=== PATIENT | male | born 1950 | race Caucasian/White ===

== ENCOUNTER 2020-09-09 08:20 | Inpatient (IN) ==
[2020-09-09] MEDS ORDERED: GLUCAGON 1 MG VIAL IM PRN ×2 (09:43)
[2020-09-09] MEDS ORDERED: DEXTROSE 50% 25 GM/50 ML VIAL IV PRN ×2 (09:43)
[2020-09-09] MEDS ORDERED: MORPHINE 4 MG/1 ML VIAL IV PRN (09:49)
[2020-09-09] MEDS ORDERED: CLORAZEPATE 3.75 MG TABLET PO PRN (09:49)
[2020-09-09] MEDS ORDERED: NITROGLYCERIN SL 0.4 MG TABLET SL PRN (09:49)
[2020-09-09] MEDS ORDERED: ALBUTEROL/IPRATROPIUM 3 ML NEB RESP TX PRN (10:18)
[2020-09-09 10:19] LABS: ABG Base Excess 1.7 MMOL/L (-2.5-2.5); ABG HCO3 25.7 MMOL/L (20-26); ABG Oxygen Saturation 90.1 % (95-100); ABG PCO2 54.9 MM HG (35-48); ABG PH 7.332 (7.35-7.45); ABG PO2 56.8 MM HG (80-95); ABG TCO2 25.2 MMOL/L (23-27)
[2020-09-09 10:26] LABS: Basophils % 0.2 % (0.0-0.8); Eosinophils % 0.2 % (0.00-10.9); Hematocrit 46.4 VOL% (42.0-52.0); Hemoglobin 14.6 GM/DL (14.0-18.0); Immature Granulocytes % 1.2 %; Lymphocytes # 1.2 10*3/uL (1.4-4.0); Lymphocytes % 14.2 % (21.2-54.2); Mean Corpuscular HGB Conc 31.5 GM/DL (32-36); Mean Corpuscular Volume 94.7 FL (87-102); Monocytes % 4.5 % (1.7-12.7); Neutrophils % 79.7 % (38.7-73.9); Platelet Count 108 T/CUMM (130-400); Red Cell Distribution Width 17.1 % (9.3-17.3); White Blood Count 8.4 T/CUMM (4-12)
[2020-09-09 10:48] LABS: Albumin 3.3 G/DL (3.4-5.0); Bilirubin,Total 0.4 MG/DL (0.2-1.0); Calcium 8.5 MG/DL (8.5-10.1); Osmolality,Calculated 287.1 MOS/KG (273-304); Potassium 4.6 MMOL/L (3.5-5.1); Total Protein 6.7 G/DL (6.4-8.2)
[2020-09-09] MEDS: CHLORHEXIDINE 0.12% ORAL RINSE 60 ML BOTTLE SWISH/SPIT SCH ×2 (12:48→21:08)
[2020-09-09] MEDS: INSULIN REGULAR 100 UNIT/ML SUBCUT SCH ×4 (12:49→23:47)
[2020-09-09] MEDS: methylPREDNISolone SOD SUC 125 MG/2 ML VIAL IV SCH ×3 (12:49→23:06)
[2020-09-09] MEDS: ALBUTEROL/IPRATROPIUM 3 ML NEB RESP TX SCH ×4 (13:34→23:50)
[2020-09-09] MEDS: CHLORHEXIDINE 4% SOLN 118 ML BOTTLE TOP SCH ×2 (15:25→21:08)
[2020-09-09] MEDS: ASCORBIC ACID 500 MG TABLET PO SCH (21:04)
[2020-09-10] MEDS: ALBUTEROL/IPRATROPIUM 3 ML NEB RESP TX SCH ×4 (03:52→19:25)
[2020-09-10] MEDS ORDERED: PAPAVERINE 60 MG/2 ML VIAL ONE (04:22)
[2020-09-10] MEDS ORDERED: VANCOMYCIN 1,000 MG VIAL ONE (04:23)
[2020-09-10] MEDS ORDERED: VANCOMYCIN 500 MG VIAL ONE (04:23)
[2020-09-10] MEDS ORDERED: VANCOMYCIN INJ 1,000 MG in SODIUM CHLORIDE 0.9% 250 ML IV ONE (05:00)
[2020-09-10] MEDS: SODIUM CHLORIDE 0.9% 1,000 ML IV SCH ×2 (05:30→12:55)
[2020-09-10] MEDS ORDERED: MIDAZOLAM 10 MG/2 ML VIAL ONE ×4 (05:37→05:38)
[2020-09-10] MEDS ORDERED: LACTATED RINGERS 1,000 ML IV ONE (05:37)
[2020-09-10] MEDS ORDERED: SODIUM CHLORIDE 0.9% 250 ML IV ONE (05:37)
[2020-09-10] MEDS ORDERED: CALCIUM CHLORIDE 1,000 MG/10 ML VIAL IV ONE (05:37)
[2020-09-10] MEDS ORDERED: AMINOCAPROIC ACID 5,000 MG/20 ML VIAL ONE (05:37)
[2020-09-10] MEDS ORDERED: VECURONIUM 10 MG VIAL IV ONE (05:37)
[2020-09-10] MEDS ORDERED: HEPARIN/NACL 0.9% 2 UNITS/ML 1,000 UNIT/500 ML BAG IV ONE (05:37)
[2020-09-10] MEDS ORDERED: SODIUM CHLORIDE 0.9% 1,000 ML IV ONE (05:37)
[2020-09-10] MEDS ORDERED: LIDOCAINE 2% 5 ML VIAL ONE ×2 (05:37→10:29)
[2020-09-10] MEDS ORDERED: ETOMIDATE 40 MG/20 ML VIAL IV ONE (05:37)
[2020-09-10] MEDS ORDERED: SUFentanil 250 MCG/5 ML AMP ONE ×3 (05:38)
[2020-09-10] MEDS ORDERED: PANTOPRAZOLE 40 MG TABLET PO ONE ×2 (06:15→07:30)
[2020-09-10] MEDS ORDERED: DIAZEPAM 5 MG TABLET PO ONE ×2 (06:15→07:30)
[2020-09-10] MEDS: methylPREDNISolone SOD SUC 125 MG/2 ML VIAL IV SCH ×5 (06:25→23:37)
[2020-09-10 07:34] LABS: ABG Base Excess 2.1 MMOL/L (-2.5-2.5); ABG HCO3 27.5 MMOL/L (20-26); ABG Oxygen Saturation 99.3 % (95-100); ABG PCO2 45.9 MM HG (35-48); ABG PH 7.396 (7.35-7.45); ABG PO2 415.1 MM HG (80-95); ABG TCO2 28.9 MMOL/L (23-27); Glucose Heart Surgery 246 MG/DL (74-106); Hemoglobin Heart Surgery 14.1 G/DL (14.0-18.0); Ionized Calcium Arterial 1.15 MMOL/L (1.21-1.46); PCO2 Patient Temp Arterial 45.9 MMHG; PH Patient Temp Arterial 7.396; PO2 Patient Temp Arterial 415.1 MM HG; Patient Temperature 37 CELCIUS; Potassium Heart/CVR 4.1 MMOL/L (3.5-5.1); Sodium Heart/CVR 139 MMOL/L (135-145)
[2020-09-10 07:54] LABS: Bilirubin,Urine Negative (Negative); Blood, Urine Negative (Negative); Glucose,Urine (UA) >=500 mg/dL (Negative); Hyaline Casts,Urine 15 /LPF (0-3); Ketones,Urine Negative (Negative); Mucus,Urine Occasional /LPF (Occasional); Nitrite,Urine Negative (Negative); Protein,Urine Negative; RBC,Urine 1 /HPF (0-4); Urine Appearance CLEAR (Clear); Urine Color Yellow (Yellow); Urine Specific Gravity 1.018 (1.001-1.035); Urine Urobilinogen < 2.0 EU/DL (0.2-1.0); WBC,Urine <1 /HPF (0-6)
[2020-09-10] MEDS ORDERED: PHENYLEPHRINE DRIP 40 MG/250 ML PREMIX IV ONE (08:26)
[2020-09-10 08:33] LABS: Hematocrit Heart Surgery 31.1 PERCENT (42-52); Hemoglobin Heart Surgery 10.1 G/DL (14.0-18.0); PCO2 Patient Temp Venous 40.4 MM HG; PH Patient Temp Venous 7.441; PO2 Patient Temp Venous 46.3 MM HG; Potassium Heart/CVR 4.5 MMOL/L (3.5-5.1); VBG Base Excess 3.3 MEQ/L (0-4); VBG HCO3 27.2 MEQ/L (24-28); VBG PCO2 44.5 MMHG (41-51); VBG PH 7.412; VBG Total CO2 25.8 MMOL/L
[2020-09-10] MEDS ORDERED: POTASSIUM CHLORIDE RIDER 0 ML IV ONE (08:48)
[2020-09-10] MEDS ORDERED: ALBUMIN 5% 25.0 GM/500 ML VIAL IV ONE (08:48)
[2020-09-10] MEDS ORDERED: SEVOFLURANE 1 UNIT/15 MINUTE INH ONE ×7 (08:57→11:40)
[2020-09-10 09:00] LABS: Hematocrit Heart Surgery 32.4 PERCENT (42-52); Hemoglobin Heart Surgery 10.5 G/DL (14.0-18.0); PCO2 Patient Temp Venous 35.7 MM HG; PH Patient Temp Venous 7.484; Potassium Heart/CVR 4.4 MMOL/L (3.5-5.1); VBG Base Excess 3.5 MEQ/L (0-4); VBG HCO3 27.3 MEQ/L (24-28); VBG Oxygen Saturation 88.6 %; VBG PCO2 39.3 MMHG (41-51); VBG PH 7.454; VBG PO2 50.5 MMHG (17-40); VBG Total CO2 24.9 MMOL/L
[2020-09-10 09:30] LABS: Hematocrit Heart Surgery 32.2 PERCENT (42-52); Hemoglobin Heart Surgery 10.4 G/DL (14.0-18.0); PCO2 Patient Temp Venous 31.4 MM HG; PH Patient Temp Venous 7.52; PO2 Patient Temp Venous 35.5 MM HG; Potassium Heart/CVR 3.9 MMOL/L (3.5-5.1); VBG Base Excess 3.2 MEQ/L (0-4); VBG Oxygen Saturation 84.3 %; VBG PCO2 36.3 MMHG (41-51); VBG PH 7.475; VBG PO2 43.7 MMHG (17-40); VBG Total CO2 24.1 MMOL/L
[2020-09-10 10:07] LABS: Hemoglobin Heart Surgery 10.7 G/DL (14.0-18.0); PCO2 Patient Temp Venous 31.3 MM HG; PH Patient Temp Venous 7.518; Potassium Heart/CVR 4.1 MMOL/L (3.5-5.1); VBG Base Excess 2.1 MEQ/L (0-4); VBG HCO3 25.3 MEQ/L (24-28); VBG Oxygen Saturation 78.9 %; VBG PCO2 34.2 MMHG (41-51); VBG PH 7.487; VBG PO2 39.2 MMHG (17-40); VBG Total CO2 26.4 MMOL/L
[2020-09-10] MEDS ORDERED: MAGNESIUM SULFATE 5 GM/10 ML VIAL IV ONE (10:29)
[2020-09-10] MEDS ORDERED: PROTAMINE SULFATE 250 MG/25 ML VIAL IV ONE (10:29)
[2020-09-10] MEDS ORDERED: FUROSEMIDE 20 MG/2 ML VIAL ONE ×2 (10:29→10:30)
[2020-09-10] MEDS ORDERED: DEXTROSE 5% KCL 20 MEQ 40 MEQ/2,000 ML BAG IV ONE (10:29)
[2020-09-10] MEDS ORDERED: ALBUMIN 25% 25 GM/100 ML VIAL IV ONE (10:29)
[2020-09-10] MEDS ORDERED: methylPREDNISolone SOD SUC 1,000 MG/8 ML VIAL ONE (10:29)
[2020-09-10] MEDS ORDERED: MANNITOL 100 GM/500 ML BAG IV ONE (10:29)
[2020-09-10] MEDS ORDERED: HEPARIN 10,000 UNIT/10 ML VIAL ONE (10:29)
[2020-09-10] MEDS ORDERED: SODIUM BICARBONATE 50 MEQ/50 ML VIAL IV ONE (10:30)
[2020-09-10] MEDS ORDERED: PROTAMINE SULFATE 50 MG/5 ML VIAL IV ONE ×2 (10:30→11:34)
[2020-09-10 10:34] LABS: ABG Base Excess -1.7 MMOL/L (-2.5-2.5); ABG HCO3 23.9 MMOL/L (20-26); ABG PH 7.353 (7.35-7.45); ABG PO2 321.1 MM HG (80-95); ABG TCO2 25.3 MMOL/L (23-27); Glucose Heart Surgery 348 MG/DL (74-106); Hemoglobin Heart Surgery 11.6 G/DL (14.0-18.0); Ionized Calcium Arterial 1.19 MMOL/L (1.21-1.46); PH Patient Temp Arterial 7.353; PO2 Patient Temp Arterial 321.1 MM HG; Patient Temperature 37 CELCIUS; Potassium Heart/CVR 3.7 MMOL/L (3.5-5.1); Sodium Heart/CVR 132 MMOL/L (135-145)
[2020-09-10] MEDS: CHLORHEXIDINE 4% SOLN 118 ML BOTTLE TOP SCH (10:47)
[2020-09-10] MEDS: ASCORBIC ACID 500 MG TABLET PO SCH (10:47)
[2020-09-10] MEDS: INSULIN REGULAR 100 UNIT/ML SUBCUT SCH (10:47)
[2020-09-10] MEDS: CHLORHEXIDINE 0.12% ORAL RINSE 60 ML BOTTLE SWISH/SPIT SCH ×2 (10:47→21:44)
[2020-09-10] MEDS ORDERED: MIDAZOLAM 10 MG/2 ML VIAL IV PRN (11:01)
[2020-09-10] MEDS ORDERED: MAGNESIUM SULF RIDER 4 GM in PREMIX 1 EACH IV PRN (11:01)
[2020-09-10] MEDS ORDERED: MAGNESIUM SULF RIDER 2 GM in PREMIX 1 EACH IV PRN (11:01)
[2020-09-10] MEDS ORDERED: CALCIUM CHLORIDE 1,000 MG/10 ML SYRINGE IV PRN (11:01)
[2020-09-10] MEDS ORDERED: ACETAMINOPHEN 650 MG SUPP RECTAL PRN (11:01)
[2020-09-10] MEDS ORDERED: NITROPRUSSIDE 100 MG in DEXTROSE 5% 250 ML IV PRN (11:01)
[2020-09-10] MEDS ORDERED: INSULIN REGULAR 100 UNIT/ML IV PRN (11:01)
[2020-09-10] MEDS ORDERED: LACTATED RINGERS 250 ML IV PRN (11:01)
[2020-09-10] MEDS ORDERED: DEXTROSE 50% 25 GM/50 ML VIAL IV PRN ×2 (11:01)
[2020-09-10] MEDS ORDERED: VECURONIUM 10 MG VIAL IV PRN ×2 (11:01)
[2020-09-10] MEDS ORDERED: MORPHINE 10 MG/1 ML VIAL IV PRN (11:01)
[2020-09-10] MEDS ORDERED: MIDAZOLAM 2 MG/2 ML VIAL IV PRN (11:01)
[2020-09-10] MEDS ORDERED: SODIUM CHLORIDE 0.45% 1,000 ML IV SCH ×2 (11:01→12:00)
[2020-09-10] MEDS ORDERED: INSULIN REGULAR 100 UNIT/ML IV ONE (11:01)
[2020-09-10] MEDS ORDERED: ONDANSETRON 4 MG/2 ML VIAL IV PRN (11:01)
[2020-09-10] MEDS ORDERED: PHENYLEPHRINE DRIP 40 MG/250 ML PREMIX IV PRN (11:01)
[2020-09-10] MEDS ORDERED: CHLORHEXIDINE 4% SOLN 118 ML BOTTLE TOP PRN (11:01)
[2020-09-10] MEDS: LACTATED RINGERS 1,000 ML IV PRN ×3 (11:30→14:05)
[2020-09-10 11:38] LABS: Basophils % 0.1 % (0.0-0.8); Hematocrit 37.2 VOL% (42.0-52.0); Immature Granulocytes % 2.2 %; Lymphocytes # 0.6 10*3/uL (1.4-4.0); Lymphocytes % 4.3 % (21.2-54.2); Mean Corpuscular HGB Conc 32.3 GM/DL (32-36); Mean Platelet Volume 11.4 FL (9.6-12.0); Monocytes % 5.5 % (1.7-12.7); Neutrophils % 87.9 % (38.7-73.9); Red Cell Distribution Width 16.7 % (9.3-17.3); White Blood Count 13.9 T/CUMM (4-12)
[2020-09-10 11:39] LABS: Platelet Count 85 T/CUMM (130-400)
[2020-09-10 11:40] LABS: ABG Base Excess 0.3 MMOL/L (-2.5-2.5); ABG HCO3 24.7 MMOL/L (20-26); ABG Oxygen Saturation 96.5 % (95-100); ABG PCO2 50.3 MM HG (35-48); ABG PH 7.337 (7.35-7.45); ABG PO2 90.5 MM HG (80-95); ABG TCO2 23.9 MMOL/L (23-27); Glucose Heart Surgery 381 MG/DL (74-106); Hematocrit Heart Surgery 37.7 PERCENT (42-52); Hemoglobin Heart Surgery 12.2 G/DL (14.0-18.0); Potassium Heart/CVR 3.8 MMOL/L (3.5-5.1)
[2020-09-10 11:46] LABS: INR 1.1; PT Patient Result 12.8 SECS (9.8-11.9); Partial Thromboplastin Time 24.8 SECS (23.9-33.8)
[2020-09-10] MEDS: POTASSIUM CHLORIDE RIDER 20 MEQ in PREMIX 1 EACH IV PRN (11:48)
[2020-09-10] MEDS ORDERED: PHENYLEPHRINE DRIP 20 MG/250 ML PREMIX IV ONE ×4 (11:48)
[2020-09-10 11:57] LABS: CKMB % 9.5 %
[2020-09-10 12:00] LABS: Band Neutrophils 3 % (0-10); Lymphocytes 3 % (20-55); Segmented Neutrophils 91 % (50-85); Total Cells Counted 100; Troponin I 12.2 NG/ML (0.00-0.045)
[2020-09-10 12:01] LABS: Atypical Lymphocytes Few; Bilirubin,Total 0.7 MG/DL (0.2-1.0); Calcium 8.4 MG/DL (8.5-10.1); Osmolality,Calculated 291.8 MOS/KG (273-304); Platelet Estimate Decreased; Potassium 3.8 MMOL/L (3.5-5.1); Total Protein 5.4 G/DL (6.4-8.2)
[2020-09-10 12:02] LABS: Microcytosis Slight; Target Cells Slight
[2020-09-10] MEDS ORDERED: NITROPRUSSIDE 50 MG/2 ML VIAL ONE (12:10)
[2020-09-10] MEDS ORDERED: INSULIN REGULAR DRIP 100 ML IV SCH (12:30)
[2020-09-10] MEDS: POTASSIUM CHLORIDE RIDER 10 MEQ in PREMIX 1 EACH IV PRN (12:39)
[2020-09-10] MEDS: ALBUMIN 5% 12.5 GM/250 ML VIAL IV PRN ×2 (13:11→13:52)
[2020-09-10 13:23] LABS: ABG Base Excess 2.9 MMOL/L (-2.5-2.5); ABG Oxygen Saturation 98.3 % (95-100); ABG PCO2 38.7 MM HG (35-48); ABG PH 7.451 (7.35-7.45); ABG TCO2 23.7 MMOL/L (23-27); Glucose Heart Surgery 311 MG/DL (74-106); Hematocrit Heart Surgery 37.9 PERCENT (42-52); Hemoglobin Heart Surgery 12.3 G/DL (14.0-18.0); Potassium Heart/CVR 4.2 MMOL/L (3.5-5.1)
[2020-09-10 17:05] LABS: ABG Base Excess 4.4 MMOL/L (-2.5-2.5); ABG HCO3 28.3 MMOL/L (20-26); ABG PH 7.438 (7.35-7.45); ABG TCO2 25.7 MMOL/L (23-27); Glucose Heart Surgery 155 MG/DL (74-106); Hematocrit Heart Surgery 36.1 PERCENT (42-52); Hemoglobin Heart Surgery 11.7 G/DL (14.0-18.0)
[2020-09-10] MEDS ORDERED: ALBUTEROL/IPRATROPIUM 3 ML NEB RESP TX ONE (19:04)
[2020-09-10 19:30] LABS: ABG Base Excess 4.4 MMOL/L (-2.5-2.5); ABG HCO3 28.4 MMOL/L (20-26); ABG Oxygen Saturation 98.9 % (95-100); ABG PCO2 40.8 MM HG (35-48); ABG PH 7.455 (7.35-7.45); ABG TCO2 25.4 MMOL/L (23-27); Glucose Heart Surgery 185 MG/DL (74-106); Hemoglobin Heart Surgery 11.7 G/DL (14.0-18.0); Potassium Heart/CVR 4.1 MMOL/L (3.5-5.1)
[2020-09-10 19:52] LABS: CKMB % 4.7 %
[2020-09-10 19:54] LABS: Troponin I 16.8 NG/ML (0.00-0.045)
[2020-09-10 21:04] LABS: ABG Base Excess 4.9 MMOL/L (-2.5-2.5); ABG HCO3 29.3 MMOL/L (20-26); ABG Oxygen Saturation 96.4 % (95-100); ABG PCO2 42.5 MM HG (35-48); ABG PH 7.456 (7.35-7.45); ABG PO2 88.6 MM HG (80-95); ABG TCO2 30.6 MMOL/L (23-27); Glucose Heart Surgery 132 MG/DL (74-106); Potassium Heart/CVR 3.8 MMOL/L (3.5-5.1)
[2020-09-10 22:15] LABS: ABG Base Excess 4.5 MMOL/L (-2.5-2.5); ABG HCO3 28.4 MMOL/L (20-26); ABG PH 7.387 (7.35-7.45); ABG PO2 84.7 MM HG (80-95); ABG TCO2 27.3 MMOL/L (23-27); Glucose Heart Surgery 145 MG/DL (74-106); Hematocrit Heart Surgery 36.3 PERCENT (42-52); Hemoglobin Heart Surgery 11.8 G/DL (14.0-18.0); Potassium Heart/CVR 3.8 MMOL/L (3.5-5.1)
[2020-09-10] MEDS: VANCOMYCIN INJ 1,000 MG in SODIUM CHLORIDE 0.9% 250 ML IV SCH (22:32)
[2020-09-10 23:19] LABS: ABG Base Excess 4.7 MMOL/L (-2.5-2.5); ABG HCO3 28.6 MMOL/L (20-26); ABG Oxygen Saturation 97.2 % (95-100); ABG PCO2 45.9 MM HG (35-48); ABG PH 7.421 (7.35-7.45); ABG PO2 92.9 MM HG (80-95); ABG TCO2 26.5 MMOL/L (23-27); Glucose Heart Surgery 124 MG/DL (74-106); Hematocrit Heart Surgery 35.9 PERCENT (42-52); Hemoglobin Heart Surgery 11.7 G/DL (14.0-18.0); Potassium Heart/CVR 3.7 MMOL/L (3.5-5.1)
[2020-09-11 00:22] LABS: ABG Base Excess 4.2 MMOL/L (-2.5-2.5); ABG HCO3 29.8 MMOL/L (20-26); ABG PCO2 48.6 MM HG (35-48); ABG PH 7.405 (7.35-7.45); ABG PO2 74.5 MM HG (80-95); ABG TCO2 31.3 MMOL/L (23-27); Glucose Heart Surgery 82 MG/DL (74-106); Hemoglobin Heart Surgery 11.9 G/DL (14.0-18.0); Potassium Heart/CVR 3.9 MMOL/L (3.5-5.1)
[2020-09-11] MEDS ORDERED: FUROSEMIDE 40 MG/4 ML VIAL IV ONE (00:38)
[2020-09-11] MEDS: ALBUTEROL/IPRATROPIUM 3 ML NEB RESP TX SCH ×4 (01:06→20:26)
[2020-09-11 02:15] LABS: ABG Base Excess 3.5 MMOL/L (-2.5-2.5); ABG HCO3 27.5 MMOL/L (20-26); ABG Oxygen Saturation 97.3 % (95-100); ABG PCO2 46.3 MM HG (35-48); ABG PH 7.404 (7.35-7.45); ABG PO2 96.4 MM HG (80-95); ABG TCO2 25.6 MMOL/L (23-27); Glucose Heart Surgery 158 MG/DL (74-106); Potassium Heart/CVR 3.9 MMOL/L (3.5-5.1)
[2020-09-11 03:14] LABS: ABG Base Excess 5.1 MMOL/L (-2.5-2.5); ABG PCO2 48.1 MM HG (35-48); ABG PH 7.413 (7.35-7.45); ABG PO2 91.3 MM HG (80-95); ABG TCO2 27.2 MMOL/L (23-27); Glucose Heart Surgery 157 MG/DL (74-106); Potassium Heart/CVR 3.8 MMOL/L (3.5-5.1)
[2020-09-11] MEDS: POTASSIUM CHLORIDE RIDER 10 MEQ in PREMIX 1 EACH IV PRN (03:17)
[2020-09-11 04:08] LABS: Basophils % 0.1 % (0.0-0.8); Hematocrit 36.5 VOL% (42.0-52.0); Hemoglobin 11.7 GM/DL (14.0-18.0); Immature Granulocytes % 0.5 %; Immature Granulocytes Absolute 0.08 #; Lymphocytes # 0.7 10*3/uL (1.4-4.0); Lymphocytes % 4.5 % (21.2-54.2); Mean Corpuscular HGB Conc 32.1 GM/DL (32-36); Mean Corpuscular Volume 92.4 FL (87-102); Mean Platelet Volume 11.1 FL (9.6-12.0); Monocytes % 3.6 % (1.7-12.7); Neutrophils % 91.3 % (38.7-73.9); Platelet Count 93 T/CUMM (130-400); Red Blood Count 3.95 MC/CUMM (3.8-5.5); Red Cell Distribution Width 17.2 % (9.3-17.3); White Blood Count 14.8 T/CUMM (4-12)
[2020-09-11 04:09] LABS: ABG Base Excess 5.3 MMOL/L (-2.5-2.5); ABG HCO3 29.1 MMOL/L (20-26); ABG Oxygen Saturation 94.4 % (95-100); ABG PCO2 48.1 MM HG (35-48); ABG PH 7.415 (7.35-7.45); ABG PO2 73.2 MM HG (80-95); ABG TCO2 27.3 MMOL/L (23-27); Glucose Heart Surgery 152 MG/DL (74-106); Hematocrit Heart Surgery 36.9 PERCENT (42-52)
[2020-09-11 04:25] LABS: Hypochromasia Slight; Lymphocytes 7 % (20-55); Microcytosis Slight; Platelet Estimate Decreased; Segmented Neutrophils 90 % (50-85); Total Cells Counted 100
[2020-09-11 04:36] LABS: CKMB % 3.1 %
[2020-09-11 04:40] LABS: Troponin I 13.9 NG/ML (0.00-0.045)
[2020-09-11 04:41] LABS: Albumin 3.5 G/DL (3.4-5.0); Bilirubin,Direct 0.21 MG/DL (0.0-0.20); Bilirubin,Total 0.6 MG/DL (0.2-1.0); Calcium 8.7 MG/DL (8.5-10.1); Osmolality,Calculated 288.4 MOS/KG (273-304); Potassium 4.1 MMOL/L (3.5-5.1); Total Protein 5.5 G/DL (6.4-8.2)
[2020-09-11] MEDS: methylPREDNISolone SOD SUC 125 MG/2 ML VIAL IV SCH ×3 (05:29→18:16)
[2020-09-11] MEDS: MORPHINE 4 MG/1 ML VIAL IV PRN ×2 (05:30→11:06)
[2020-09-11 05:49] LABS: ABG Base Excess 5.3 MMOL/L (-2.5-2.5); ABG HCO3 29.2 MMOL/L (20-26); ABG Oxygen Saturation 96.1 % (95-100); ABG PCO2 48.6 MM HG (35-48); ABG PH 7.412 (7.35-7.45); ABG PO2 81.6 MM HG (80-95); ABG TCO2 27.4 MMOL/L (23-27); Glucose Heart Surgery 137 MG/DL (74-106); Hematocrit Heart Surgery 37.2 PERCENT (42-52); Hemoglobin Heart Surgery 12.1 G/DL (14.0-18.0)
[2020-09-11 08:23] LABS: ABG Base Excess 3.5 MMOL/L (-2.5-2.5); ABG HCO3 27.3 MMOL/L (20-26); ABG PCO2 49.8 MM HG (35-48); ABG PH 7.382 (7.35-7.45); ABG PO2 55.1 MM HG (80-95); ABG TCO2 26.2 MMOL/L (23-27); Glucose Heart Surgery 187 MG/DL (74-106); Hematocrit Heart Surgery 38.4 PERCENT (42-52); Hemoglobin Heart Surgery 12.5 G/DL (14.0-18.0); Potassium Heart/CVR 4.1 MMOL/L (3.5-5.1)
[2020-09-11] MEDS: CHLORHEXIDINE 0.12% ORAL RINSE 60 ML BOTTLE SWISH/SPIT SCH ×2 (08:26→21:07)
[2020-09-11] MEDS: VANCOMYCIN INJ 1,000 MG in SODIUM CHLORIDE 0.9% 250 ML IV SCH ×2 (09:49→23:05)
[2020-09-11 09:58] LABS: ABG Base Excess 2.6 MMOL/L (-2.5-2.5); ABG HCO3 26.7 MMOL/L (20-26); ABG Oxygen Saturation 98.7 % (95-100); ABG PCO2 45.6 MM HG (35-48); ABG PH 7.396 (7.35-7.45); ABG TCO2 24.7 MMOL/L (23-27); Glucose Heart Surgery 223 MG/DL (74-106); Hematocrit Heart Surgery 37.7 PERCENT (42-52); Hemoglobin Heart Surgery 12.2 G/DL (14.0-18.0); Potassium Heart/CVR 4.1 MMOL/L (3.5-5.1)
[2020-09-11] MEDS ORDERED: amLODIPine 5 MG TABLET PO PRN (10:21)
[2020-09-11] MEDS: hydrALAZINE 20 MG/1 ML VIAL IV PRN ×2 (10:59→16:11)
[2020-09-11] MEDS: PANTOPRAZOLE 40 MG VIAL IV SCH (11:06)
[2020-09-11] MEDS: ASPIRIN CHEW 81 MG TABLET PO SCH (11:07)
[2020-09-11] MEDS: ASCORBIC ACID 500 MG TABLET PO SCH ×2 (11:07→21:07)
[2020-09-11] MEDS: INSULIN REGULAR 100 UNIT/ML SUBCUT SCH ×3 (11:30→21:06)
[2020-09-11 11:41] LABS: ABG Base Excess 1.8 MMOL/L (-2.5-2.5); ABG Oxygen Saturation 97.3 % (95-100); ABG PCO2 45.7 MM HG (35-48); ABG PH 7.385 (7.35-7.45); ABG PO2 99.1 MM HG (80-95); ABG TCO2 24.2 MMOL/L (23-27); Glucose Heart Surgery 247 MG/DL (74-106); Hematocrit Heart Surgery 37.1 PERCENT (42-52)
[2020-09-11 13:33] LABS: ABG HCO3 26.1 MMOL/L (20-26); ABG Oxygen Saturation 94.3 % (95-100); ABG PCO2 42.8 MM HG (35-48); ABG PH 7.408 (7.35-7.45); ABG PO2 74.5 MM HG (80-95); ABG TCO2 23.8 MMOL/L (23-27); Glucose Heart Surgery 270 MG/DL (74-106); Hematocrit Heart Surgery 37.9 PERCENT (42-52); Hemoglobin Heart Surgery 12.3 G/DL (14.0-18.0); Potassium Heart/CVR 4.1 MMOL/L (3.5-5.1)
[2020-09-11 14:39] LABS: CKMB % 1.9 %
[2020-09-11 14:41] LABS: Troponin I 8.63 NG/ML (0.00-0.045)
[2020-09-11] MEDS: THEOPHYLLINE ER (24 HR) 200 MG CAPSULE PO SCH (16:16)
[2020-09-11] MEDS ORDERED: ALBUTEROL/IPRATROPIUM 3 ML NEB RESP TX SCH (19:47)
[2020-09-11] MEDS: ATORVASTATIN 40 MG TABLET PO SCH (21:07)
[2020-09-11] MEDS: METOPROLOL TARTRATE 25 MG TABLET PO SCH (21:07)
[2020-09-12] MEDS ORDERED: FUROSEMIDE 40 MG/4 ML VIAL IV ONE
[2020-09-12] MEDS: ALBUTEROL/IPRATROPIUM 3 ML NEB RESP TX SCH ×4 (00:25→19:08)
[2020-09-12] MEDS: methylPREDNISolone SOD SUC 125 MG/2 ML VIAL IV SCH ×4 (00:26→17:30)
[2020-09-12] MEDS: INSULIN REGULAR 100 UNIT/ML SUBCUT SCH ×6 (00:26→20:03)
[2020-09-12] MEDS: MORPHINE 4 MG/1 ML VIAL IV PRN ×3 (03:28→20:01)
[2020-09-12 05:01] LABS: Basophils % 0.1 % (0.0-0.8); Hematocrit 35.8 VOL% (42.0-52.0); Hemoglobin 11.6 GM/DL (14.0-18.0); Immature Granulocytes % 0.7 %; Immature Granulocytes Absolute 0.08 #; Lymphocytes # 0.5 10*3/uL (1.4-4.0); Lymphocytes % 4.6 % (21.2-54.2); Mean Corpuscular HGB Conc 32.4 GM/DL (32-36); Mean Corpuscular Volume 92.3 FL (87-102); Mean Platelet Volume 12.2 FL (9.6-12.0); Monocytes % 3.3 % (1.7-12.7); Neutrophils % 91.3 % (38.7-73.9); Platelet Count 87 T/CUMM (130-400); Red Blood Count 3.88 MC/CUMM (3.8-5.5); Red Cell Distribution Width 17.2 % (9.3-17.3); White Blood Count 11.6 T/CUMM (4-12)
[2020-09-12 05:17] LABS: Albumin 3.2 G/DL (3.4-5.0); Bilirubin,Direct 0.2 MG/DL (0.0-0.20); Bilirubin,Total 0.7 MG/DL (0.2-1.0); Calcium 8.5 MG/DL (8.5-10.1); Osmolality,Calculated 288.7 MOS/KG (273-304); Potassium 3.8 MMOL/L (3.5-5.1); Total Protein 5.7 G/DL (6.4-8.2)
[2020-09-12 06:22] LABS: Band Neutrophils 1 % (0-10); Lymphocytes 4 % (20-55); Segmented Neutrophils 92 % (50-85); Total Cells Counted 100
[2020-09-12 06:23] LABS: Platelet Estimate Decreased
[2020-09-12] MEDS: PANTOPRAZOLE 40 MG VIAL IV SCH (08:13)
[2020-09-12] MEDS: ASPIRIN CHEW 81 MG TABLET PO SCH (08:13)
[2020-09-12] MEDS: THEOPHYLLINE ER (24 HR) 200 MG CAPSULE PO SCH (08:13)
[2020-09-12] MEDS: METOPROLOL TARTRATE 25 MG TABLET PO SCH ×2 (08:14→22:16)
[2020-09-12] MEDS: CHLORHEXIDINE 0.12% ORAL RINSE 60 ML BOTTLE SWISH/SPIT SCH ×2 (08:14→22:23)
[2020-09-12] MEDS: ASCORBIC ACID 500 MG TABLET PO SCH ×2 (08:14→22:16)
[2020-09-12] MEDS: POTASSIUM CHLORIDE RIDER 20 MEQ in PREMIX 1 EACH IV PRN (08:15)
[2020-09-12] MEDS ORDERED: MAGNESIUM SULF RIDER 4 GM/100 ML PREMIX IV PRN (09:46)
[2020-09-12] MEDS ORDERED: DEXTROSE 50% 25 GM/50 ML VIAL IV PRN ×2 (09:46)
[2020-09-12] MEDS ORDERED: oxyCODONE/ACETAMINOPHEN 5-325 MG TABLET PO PRN (09:46)
[2020-09-12] MEDS ORDERED: ALUMINUM/MAGNES/SIMETH MAX STR 30 ML UDCUP PO PRN (09:46)
[2020-09-12] MEDS ORDERED: ACETAMINOPHEN 325 MG TABLET PO PRN (09:46)
[2020-09-12] MEDS ORDERED: MAGNESIUM SULF RIDER 2 GM/50 ML PREMIX IV PRN (09:46)
[2020-09-12] MEDS ORDERED: SODIUM CHLOR 0.45% KCL 20 MEQ 20 MEQ/1,000 ML BAG IV SCH (09:46)
[2020-09-12] MEDS ORDERED: GLUCAGON 1 MG VIAL IM PRN ×2 (09:46)
[2020-09-12] MEDS ORDERED: VANCOMYCIN INJ 1,000 MG in SODIUM CHLORIDE 0.9% 250 ML IV ONE (10:00)
[2020-09-12] MEDS ORDERED: HYDROmorphone 2 MG/1 ML VIAL IV PRN (17:23)
[2020-09-12] MEDS: ONDANSETRON 4 MG/2 ML VIAL IV PRN (20:00)
[2020-09-12] MEDS: ATORVASTATIN 40 MG TABLET PO SCH (22:15)
[2020-09-12] MEDS: MONTELUKAST 10 MG TABLET PO SCH (22:15)
[2020-09-13] MEDS: ALBUTEROL/IPRATROPIUM 3 ML NEB RESP TX SCH ×4 (01:15→19:25)
[2020-09-13] MEDS: methylPREDNISolone SOD SUC 125 MG/2 ML VIAL IV SCH ×5 (01:23→23:50)
[2020-09-13] MEDS: INSULIN REGULAR 100 UNIT/ML SUBCUT SCH ×6 (01:25→21:01)
[2020-09-13] MEDS: MORPHINE 4 MG/1 ML VIAL IV PRN ×2 (05:20→20:59)
[2020-09-13] MEDS: ONDANSETRON 4 MG/2 ML VIAL IV PRN ×2 (05:20→20:58)
[2020-09-13] MEDS ORDERED: FUROSEMIDE 40 MG/4 ML VIAL IV ONE (06:00)
[2020-09-13] MEDS: MELOXICAM 7.5 MG TABLET PO SCH (08:30)
[2020-09-13] MEDS: ASCORBIC ACID 500 MG TABLET PO SCH ×2 (08:31→23:42)
[2020-09-13] MEDS: MONTELUKAST 10 MG TABLET PO SCH ×2 (08:31→23:43)
[2020-09-13] MEDS: FERROUS SULFATE 325 MG TABLET PO SCH (08:31)
[2020-09-13] MEDS: CETIRIZINE 10 MG TABLET PO SCH (08:31)
[2020-09-13] MEDS: ASPIRIN CHEW 81 MG TABLET PO SCH (08:31)
[2020-09-13] MEDS: PANTOPRAZOLE 40 MG TABLET PO SCH (08:31)
[2020-09-13] MEDS: METOPROLOL TARTRATE 25 MG TABLET PO SCH ×2 (08:31→23:42)
[2020-09-13] MEDS: DOCUSATE SODIUM 100 MG CAPSULE PO SCH (08:31)
[2020-09-13] MEDS: PIOGLITAZONE 15 MG TABLET PO SCH (08:32)
[2020-09-13] MEDS: metOLazone 5 MG TABLET PO SCH (08:32)
[2020-09-13] MEDS: TAMSULOSIN 0.4 MG CAPSULE PO SCH (08:32)
[2020-09-13] MEDS: THEOPHYLLINE ER (24 HR) 200 MG CAPSULE PO SCH (08:32)
[2020-09-13] MEDS: CHLORHEXIDINE 0.12% ORAL RINSE 60 ML BOTTLE SWISH/SPIT SCH ×2 (08:33→23:46)
[2020-09-13 08:43] LABS: Alanine Aminotransferase 32 U/L (16-61); Albumin 3.3 G/DL (3.4-5.0); Alkaline Phosphatase 54 U/L (45-117); Aspartate Amino Transferase 26 U/L (0-37); Bilirubin,Indirect 0.4 MG/DL (0.0-1.0); Blood Urea Nitrogen 47 MG/DL (7-18); Calcium 8.5 MG/DL (8.5-10.1); Carbon Dioxide 32 MMOL/L (21-32); Estimated Glom Filtration Rate 51 ML/MIN; Glucose 179 MG/DL (74-106); Osmolality,Calculated 294.4 MOS/KG (273-304); Potassium 4.2 MMOL/L (3.5-5.1); Sodium 140 MMOL/L (136-145); Total Protein 6.1 G/DL (6.4-8.2)
[2020-09-13] MEDS: POTASSIUM CHLORIDE 20 MEQ TABLET PO PRN (11:57)
[2020-09-13] MEDS: NON-FORMULARY MEDICATION (Fluticasone-Umeclidin-Vilanter [Trelegy Ellipta] 100-62.5-25 mcg INH SCH (11:57)
[2020-09-13] MEDS: ATORVASTATIN 40 MG TABLET PO SCH (23:42)
[2020-09-14] MEDS: ALBUTEROL/IPRATROPIUM 3 ML NEB RESP TX SCH ×4 (01:04→19:21)
[2020-09-14] MEDS: INSULIN REGULAR 100 UNIT/ML SUBCUT SCH ×5 (02:25→21:34)
[2020-09-14] MEDS: methylPREDNISolone SOD SUC 125 MG/2 ML VIAL IV SCH (05:27)
[2020-09-14 06:15] LABS: Basophils % 0.2 % (0.0-0.8); Hematocrit 35.3 VOL% (42.0-52.0); Hemoglobin 11.1 GM/DL (14.0-18.0); Immature Granulocytes % 1.6 %; Immature Granulocytes Absolute 0.17 #; Lymphocytes # 0.4 10*3/uL (1.4-4.0); Lymphocytes % 3.9 % (21.2-54.2); Mean Corpuscular HGB Conc 31.4 GM/DL (32-36); Mean Corpuscular Volume 96.4 FL (87-102); Mean Platelet Volume 12.5 FL (9.6-12.0); Monocytes % 3.2 % (1.7-12.7); NRBC # 0.04 10*3/uL; Neutrophils % 91.1 % (38.7-73.9); Platelet Count 102 T/CUMM (130-400); Red Blood Count 3.66 MC/CUMM (3.8-5.5); Red Cell Distribution Width 17.1 % (9.3-17.3); White Blood Count 10.4 T/CUMM (4-12)
[2020-09-14 06:41] LABS: Albumin 3.1 G/DL (3.4-5.0); Bilirubin,Total 0.7 MG/DL (0.2-1.0); Calcium 8.3 MG/DL (8.5-10.1); Osmolality,Calculated 302.8 MOS/KG (273-304); Potassium 4.6 MMOL/L (3.5-5.1); Total Protein 5.8 G/DL (6.4-8.2)
[2020-09-14 06:43] LABS: Alanine Aminotransferase 29 U/L (16-61); Albumin 3.3 G/DL (3.4-5.0); Alkaline Phosphatase 66 U/L (45-117); Aspartate Amino Transferase 22 U/L (0-37); Bilirubin,Indirect 0.4 MG/DL (0.0-1.0)
[2020-09-14 06:55] LABS: Hypochromasia Slight; Lymphocytes 3 % (20-55); Segmented Neutrophils 91 % (50-85); Total Cells Counted 100
[2020-09-14 06:56] LABS: Microcytosis Slight; Platelet Estimate Decreased
[2020-09-14] MEDS ORDERED: SODIUM CHLORIDE 0.65% NASAL SPRAY 45 ML BOTTLE BOTH NARES PRN (07:54)
[2020-09-14] MEDS: ASCORBIC ACID 500 MG TABLET PO SCH ×2 (09:52→21:25)
[2020-09-14] MEDS: MONTELUKAST 10 MG TABLET PO SCH ×2 (09:52→21:26)
[2020-09-14] MEDS: MOMETASONE 50 MCG NASAL SPRAY 17 GM BOTTLE BOTH NARES SCH ×2 (09:52→21:26)
[2020-09-14] MEDS: FERROUS SULFATE 325 MG TABLET PO SCH (09:53)
[2020-09-14] MEDS: THEOPHYLLINE ER (24 HR) 200 MG CAPSULE PO SCH (09:53)
[2020-09-14] MEDS: METOPROLOL TARTRATE 25 MG TABLET PO SCH ×2 (09:53→21:26)
[2020-09-14] MEDS: PANTOPRAZOLE 40 MG TABLET PO SCH (09:53)
[2020-09-14] MEDS: TAMSULOSIN 0.4 MG CAPSULE PO SCH (09:53)
[2020-09-14] MEDS: PIOGLITAZONE 15 MG TABLET PO SCH (09:53)
[2020-09-14] MEDS: MELOXICAM 7.5 MG TABLET PO SCH (09:53)
[2020-09-14] MEDS: CETIRIZINE 10 MG TABLET PO SCH (09:53)
[2020-09-14] MEDS: ASPIRIN CHEW 81 MG TABLET PO SCH (09:53)
[2020-09-14] MEDS: DOCUSATE SODIUM 100 MG CAPSULE PO SCH (09:53)
[2020-09-14] MEDS: NON-FORMULARY MEDICATION (Fluticasone-Umeclidin-Vilanter [Trelegy Ellipta] 100-62.5-25 mcg INH SCH (09:54)
[2020-09-14] MEDS: CHLORHEXIDINE 0.12% ORAL RINSE 60 ML BOTTLE SWISH/SPIT SCH ×2 (09:54→21:26)
[2020-09-14] MEDS: MAGNESIUM HYDROXIDE SUSP 30 ML UDCUP PO PRN (10:01)
[2020-09-14] MEDS: metOLazone 5 MG TABLET PO SCH (10:04)
[2020-09-14] MEDS: methylPREDNISolone 4 MG TABLET PO SCH ×2 (10:10→23:22)
[2020-09-14] MEDS: MORPHINE 4 MG/1 ML VIAL IV PRN (12:48)
[2020-09-14] MEDS: ATORVASTATIN 40 MG TABLET PO SCH (21:26)
[2020-09-14] MEDS: INSULIN GLARGINE 100 UNIT/ML SUBCUT SCH (21:34)
[2020-09-15] MEDS: ALBUTEROL/IPRATROPIUM 3 ML NEB RESP TX SCH ×3 (00:21→13:58)
[2020-09-15 05:38] LABS: Basophils % 0.2 % (0.0-0.8); Hematocrit 35.3 VOL% (42.0-52.0); Hemoglobin 11.1 GM/DL (14.0-18.0); Immature Granulocytes % 2.3 %; Immature Granulocytes Absolute 0.29 #; Lymphocytes # 0.8 10*3/uL (1.4-4.0); Lymphocytes % 6.7 % (21.2-54.2); Mean Corpuscular HGB Conc 31.4 GM/DL (32-36); Mean Corpuscular Volume 95.4 FL (87-102); Mean Platelet Volume 11.9 FL (9.6-12.0); Monocytes % 5.5 % (1.7-12.7); NRBC # 0.03 10*3/uL; Neutrophils % 85.3 % (38.7-73.9); Platelet Count 121 T/CUMM (130-400); Red Cell Distribution Width 16.9 % (9.3-17.3); White Blood Count 12.6 T/CUMM (4-12)
[2020-09-15 05:57] LABS: Calcium 8.3 MG/DL (8.5-10.1); Osmolality,Calculated 296.8 MOS/KG (273-304); Potassium 4.5 MMOL/L (3.5-5.1)
[2020-09-15] MEDS: MOMETASONE 50 MCG NASAL SPRAY 17 GM BOTTLE BOTH NARES SCH ×2 (09:02→21:46)
[2020-09-15] MEDS: CHLORHEXIDINE 0.12% ORAL RINSE 60 ML BOTTLE SWISH/SPIT SCH ×2 (09:02→21:46)
[2020-09-15] MEDS: INSULIN REGULAR 100 UNIT/ML SUBCUT SCH ×4 (09:02→21:45)
[2020-09-15] MEDS: METOPROLOL TARTRATE 25 MG TABLET PO SCH ×2 (09:04→21:44)
[2020-09-15] MEDS: MONTELUKAST 10 MG TABLET PO SCH ×2 (09:04→21:43)
[2020-09-15] MEDS: CETIRIZINE 10 MG TABLET PO SCH (09:04)
[2020-09-15] MEDS: ASCORBIC ACID 500 MG TABLET PO SCH ×2 (09:04→21:44)
[2020-09-15] MEDS: THEOPHYLLINE ER (24 HR) 200 MG CAPSULE PO SCH (09:04)
[2020-09-15] MEDS: ASPIRIN CHEW 81 MG TABLET PO SCH (09:04)
[2020-09-15] MEDS: TAMSULOSIN 0.4 MG CAPSULE PO SCH (09:04)
[2020-09-15] MEDS: MELOXICAM 7.5 MG TABLET PO SCH (09:04)
[2020-09-15] MEDS: methylPREDNISolone 4 MG TABLET PO SCH ×2 (09:04→21:44)
[2020-09-15] MEDS: PIOGLITAZONE 15 MG TABLET PO SCH (09:04)
[2020-09-15] MEDS: NON-FORMULARY MEDICATION (Fluticasone-Umeclidin-Vilanter [Trelegy Ellipta] 100-62.5-25 mcg INH SCH (09:05)
[2020-09-15] MEDS: PANTOPRAZOLE 40 MG TABLET PO SCH (09:05)
[2020-09-15] MEDS: DOCUSATE SODIUM 100 MG CAPSULE PO SCH (09:05)
[2020-09-15] MEDS: FERROUS SULFATE 325 MG TABLET PO SCH (09:05)
[2020-09-15] MEDS ORDERED: AMIODARONE INJ 150 MG in DEXTROSE 5% 100 ML IV ONE (09:09)
[2020-09-15] MEDS ORDERED: DILTIAZEM 50 MG/10 ML VIAL IV ONE (09:09)
[2020-09-15] MEDS ORDERED: AMIODARONE INJ 450 MG in DEXTROSE 5% 241 ML IV SCH (09:30)
[2020-09-15] MEDS: DILTIAZEM INJ 100 MG in SODIUM CHLORIDE 0.9% 100 ML IV SCH ×2 (09:49→19:08)
[2020-09-15] MEDS ORDERED: FUROSEMIDE 40 MG/4 ML VIAL IV ONE (10:19)
[2020-09-15] MEDS: MORPHINE 4 MG/1 ML VIAL IV PRN ×2 (11:19→15:16)
[2020-09-15] MEDS ORDERED: DIGOXIN 0.5 MG/2 ML AMP IV ONE (13:23)
[2020-09-15] MEDS: AMIODARONE INJ 450 MG in DEXTROSE 5% 241 ML IV SCH ×2 (16:32→19:07)
[2020-09-15] MEDS: MAGNESIUM HYDROXIDE SUSP 30 ML UDCUP PO PRN (18:34)
[2020-09-15] MEDS: ATORVASTATIN 40 MG TABLET PO SCH (21:44)
[2020-09-15] MEDS: INSULIN GLARGINE 100 UNIT/ML SUBCUT SCH (21:45)
[2020-09-16] MEDS: ALBUTEROL/IPRATROPIUM 3 ML NEB RESP TX SCH ×4 (03:57→19:05)
[2020-09-16 06:26] LABS: Basophils % 0.2 % (0.0-0.8); Eosinophils % 0.1 % (0.00-10.9); Hematocrit 36.2 VOL% (42.0-52.0); Hemoglobin 11.1 GM/DL (14.0-18.0); Immature Granulocytes % 3.6 %; Immature Granulocytes Absolute 0.38 #; Lymphocytes % 8.9 % (21.2-54.2); Mean Corpuscular HGB Conc 30.7 GM/DL (32-36); Mean Corpuscular Volume 98.4 FL (87-102); Mean Platelet Volume 12.2 FL (9.6-12.0); Monocytes % 5.4 % (1.7-12.7); NRBC # 0.03 10*3/uL; Neutrophils % 81.8 % (38.7-73.9); Platelet Count 130 T/CUMM (130-400); Red Blood Count 3.68 MC/CUMM (3.8-5.5); Red Cell Distribution Width 17.1 % (9.3-17.3); White Blood Count 10.7 T/CUMM (4-12)
[2020-09-16 06:59] LABS: Alanine Aminotransferase 27 U/L (16-61); Albumin 3.3 G/DL (3.4-5.0); Alkaline Phosphatase 68 U/L (45-117); Aspartate Amino Transferase 22 U/L (0-37); Bilirubin,Indirect 0.5 MG/DL (0.0-1.0); Blood Urea Nitrogen 53 MG/DL (7-18); Calcium 8.4 MG/DL (8.5-10.1); Carbon Dioxide 38 MMOL/L (21-32); Estimated Glom Filtration Rate 55 ML/MIN; Glucose 175 MG/DL (74-106); Osmolality,Calculated 294.5 MOS/KG (273-304); Potassium 4.2 MMOL/L (3.5-5.1); Sodium 139 MMOL/L (136-145); Total Protein 5.9 G/DL (6.4-8.2)
[2020-09-16] MEDS ORDERED: FUROSEMIDE 40 MG/4 ML VIAL IV ONE (09:00)
[2020-09-16] MEDS: ASCORBIC ACID 500 MG TABLET PO SCH ×2 (09:03→22:21)
[2020-09-16] MEDS: POTASSIUM CHLORIDE 20 MEQ TABLET PO PRN (09:03)
[2020-09-16] MEDS: PANTOPRAZOLE 40 MG TABLET PO SCH (09:03)
[2020-09-16] MEDS: DOCUSATE SODIUM 100 MG CAPSULE PO SCH (09:03)
[2020-09-16] MEDS: PIOGLITAZONE 15 MG TABLET PO SCH (09:03)
[2020-09-16] MEDS: FERROUS SULFATE 325 MG TABLET PO SCH (09:03)
[2020-09-16] MEDS: metOLazone 5 MG TABLET PO SCH (09:04)
[2020-09-16] MEDS: MONTELUKAST 10 MG TABLET PO SCH ×2 (09:04→22:20)
[2020-09-16] MEDS: AMIODARONE 200 MG TABLET PO SCH ×2 (09:04→22:23)
[2020-09-16] MEDS: TAMSULOSIN 0.4 MG CAPSULE PO SCH (09:04)
[2020-09-16] MEDS: methylPREDNISolone 4 MG TABLET PO SCH ×2 (09:04→22:21)
[2020-09-16] MEDS: INSULIN REGULAR 100 UNIT/ML SUBCUT SCH ×4 (09:05→22:30)
[2020-09-16] MEDS: METOPROLOL TARTRATE 50 MG TABLET PO SCH ×2 (09:05→22:23)
[2020-09-16] MEDS: THEOPHYLLINE ER (24 HR) 200 MG CAPSULE PO SCH (09:05)
[2020-09-16] MEDS: MELOXICAM 7.5 MG TABLET PO SCH (09:05)
[2020-09-16] MEDS: ASPIRIN CHEW 81 MG TABLET PO SCH (09:05)
[2020-09-16] MEDS: CETIRIZINE 10 MG TABLET PO SCH (09:05)
[2020-09-16] MEDS: MOMETASONE 50 MCG NASAL SPRAY 17 GM BOTTLE BOTH NARES SCH ×2 (09:06→22:28)
[2020-09-16] MEDS: CHLORHEXIDINE 0.12% ORAL RINSE 60 ML BOTTLE SWISH/SPIT SCH (09:07)
[2020-09-16] MEDS: NON-FORMULARY MEDICATION (Fluticasone-Umeclidin-Vilanter [Trelegy Ellipta] 100-62.5-25 mcg INH SCH (09:07)
[2020-09-16] MEDS: AMIODARONE INJ 450 MG in DEXTROSE 5% 241 ML IV SCH (09:26)
[2020-09-16] MEDS: DILTIAZEM INJ 100 MG in SODIUM CHLORIDE 0.9% 100 ML IV SCH (09:27)
[2020-09-16] MEDS: MAGNESIUM HYDROXIDE SUSP 30 ML UDCUP PO PRN (16:33)
[2020-09-16] MEDS: ZALEPLON 5 MG CAPSULE PO PRN (22:21)
[2020-09-16] MEDS: ATORVASTATIN 40 MG TABLET PO SCH (22:23)
[2020-09-16] MEDS: INSULIN GLARGINE 100 UNIT/ML SUBCUT SCH (22:30)
[2020-09-17] MEDS: ALBUTEROL/IPRATROPIUM 3 ML NEB RESP TX SCH ×4 (01:11→19:48)
[2020-09-17] MEDS: MAGNESIUM HYDROXIDE SUSP 30 ML UDCUP PO PRN (06:35)
[2020-09-17 06:55] LABS: Basophils % 0.2 % (0.0-0.8); Eosinophils % 0.1 % (0.00-10.9); Hematocrit 37.6 VOL% (42.0-52.0); Hemoglobin 11.4 GM/DL (14.0-18.0); Immature Granulocytes % 2.5 %; Lymphocytes # 1.1 10*3/uL (1.4-4.0); Lymphocytes % 9.2 % (21.2-54.2); Mean Corpuscular HGB Conc 30.3 GM/DL (32-36); Mean Corpuscular Volume 98.4 FL (87-102); Mean Platelet Volume 11.4 FL (9.6-12.0); Monocytes % 3.9 % (1.7-12.7); Neutrophils % 84.1 % (38.7-73.9); Platelet Count 151 T/CUMM (130-400); Red Blood Count 3.82 MC/CUMM (3.8-5.5); Red Cell Distribution Width 17.1 % (9.3-17.3); White Blood Count 12.1 T/CUMM (4-12)
[2020-09-17 07:14] LABS: Alanine Aminotransferase 27 U/L (16-61); Albumin 3.3 G/DL (3.4-5.0); Alkaline Phosphatase 63 U/L (45-117); Aspartate Amino Transferase 17 U/L (0-37); Bilirubin,Indirect 0.6 MG/DL (0.0-1.0); Blood Urea Nitrogen 41 MG/DL (7-18); Calcium 8.5 MG/DL (8.5-10.1); Carbon Dioxide 40 MMOL/L (21-32); Estimated Glom Filtration Rate 59 ML/MIN; Glucose 148 MG/DL (74-106); Osmolality,Calculated 291.4 MOS/KG (273-304); Potassium 4.2 MMOL/L (3.5-5.1); Sodium 140 MMOL/L (136-145); Total Protein 5.8 G/DL (6.4-8.2)
[2020-09-17] MEDS: AMIODARONE 200 MG TABLET PO SCH ×2 (08:38→22:01)
[2020-09-17] MEDS: metOLazone 5 MG TABLET PO SCH (08:38)
[2020-09-17] MEDS: TAMSULOSIN 0.4 MG CAPSULE PO SCH (08:38)
[2020-09-17] MEDS: PANTOPRAZOLE 40 MG TABLET PO SCH (08:38)
[2020-09-17] MEDS: FERROUS SULFATE 325 MG TABLET PO SCH (08:38)
[2020-09-17] MEDS: DOCUSATE SODIUM 100 MG CAPSULE PO SCH (08:39)
[2020-09-17] MEDS: ASCORBIC ACID 500 MG TABLET PO SCH ×2 (08:39→22:02)
[2020-09-17] MEDS: POTASSIUM CHLORIDE 20 MEQ TABLET PO PRN (08:39)
[2020-09-17] MEDS: CETIRIZINE 10 MG TABLET PO SCH (08:39)
[2020-09-17] MEDS: METOPROLOL TARTRATE 50 MG TABLET PO SCH ×2 (08:39→22:01)
[2020-09-17] MEDS: THEOPHYLLINE ER (24 HR) 200 MG CAPSULE PO SCH (08:39)
[2020-09-17] MEDS: INSULIN REGULAR 100 UNIT/ML SUBCUT SCH ×4 (08:40→22:06)
[2020-09-17] MEDS: MELOXICAM 7.5 MG TABLET PO SCH (08:40)
[2020-09-17] MEDS: CHLORHEXIDINE 0.12% ORAL RINSE 60 ML BOTTLE SWISH/SPIT SCH ×3 (08:40→22:08)
[2020-09-17] MEDS: PIOGLITAZONE 15 MG TABLET PO SCH (08:40)
[2020-09-17] MEDS: MONTELUKAST 10 MG TABLET PO SCH ×2 (08:40→22:02)
[2020-09-17] MEDS: MOMETASONE 50 MCG NASAL SPRAY 17 GM BOTTLE BOTH NARES SCH ×2 (08:41→22:05)
[2020-09-17] MEDS: methylPREDNISolone 4 MG TABLET PO SCH ×2 (08:41→22:02)
[2020-09-17] MEDS: ASPIRIN CHEW 81 MG TABLET PO SCH (08:41)
[2020-09-17] MEDS ORDERED: SODIUM PHOSPHATE ENEMA 133 ML BOTTLE RECTAL PRN (09:23)
[2020-09-17] MEDS ORDERED: SODIUM PHOSPHATE ENEMA 133 ML BOTTLE RECTAL ONE (09:23)
[2020-09-17] MEDS: NON-FORMULARY MEDICATION (Fluticasone-Umeclidin-Vilanter [Trelegy Ellipta] 100-62.5-25 mcg INH SCH (10:23)
[2020-09-17] MEDS: DILTIAZEM INJ 100 MG in SODIUM CHLORIDE 0.9% 100 ML IV SCH (10:32)
[2020-09-17] MEDS: LACTULOSE 20 GM/30 ML UDCUP PO SCH ×2 (15:52→22:08)
[2020-09-17] MEDS: ATORVASTATIN 40 MG TABLET PO SCH (22:01)
[2020-09-17] MEDS: ZALEPLON 5 MG CAPSULE PO PRN (22:01)
[2020-09-17] MEDS: INSULIN GLARGINE 100 UNIT/ML SUBCUT SCH (22:07)
[2020-09-18] MEDS: ALBUTEROL/IPRATROPIUM 3 ML NEB RESP TX SCH ×4 (00:13→19:41)
[2020-09-18 06:50] LABS: Basophils % 0.2 % (0.0-0.8); Eosinophils % 0.1 % (0.00-10.9); Hematocrit 34.3 VOL% (42.0-52.0); Hemoglobin 10.5 GM/DL (14.0-18.0); Immature Granulocytes % 2.5 %; Immature Granulocytes Absolute 0.26 #; Lymphocytes # 1.1 10*3/uL (1.4-4.0); Lymphocytes % 10.2 % (21.2-54.2); Mean Corpuscular HGB Conc 30.6 GM/DL (32-36); Mean Corpuscular Volume 98.3 FL (87-102); Mean Platelet Volume 11.5 FL (9.6-12.0); Monocytes % 3.8 % (1.7-12.7); Neutrophils % 83.2 % (38.7-73.9); Platelet Count 161 T/CUMM (130-400); Red Blood Count 3.49 MC/CUMM (3.8-5.5); Red Cell Distribution Width 17.2 % (9.3-17.3); White Blood Count 10.6 T/CUMM (4-12)
[2020-09-18 07:12] LABS: Calcium 8.2 MG/DL (8.5-10.1); Osmolality,Calculated 285.4 MOS/KG (273-304)
[2020-09-18] MEDS: INSULIN REGULAR 100 UNIT/ML SUBCUT SCH ×4 (08:49→20:44)
[2020-09-18] MEDS ORDERED: FUROSEMIDE 40 MG/4 ML VIAL IV ONE (09:00)
[2020-09-18] MEDS: LACTULOSE 20 GM/30 ML UDCUP PO SCH ×3 (09:34→20:33)
[2020-09-18] MEDS: ASPIRIN CHEW 81 MG TABLET PO SCH (09:36)
[2020-09-18] MEDS: ASCORBIC ACID 500 MG TABLET PO SCH ×2 (09:36→20:33)
[2020-09-18] MEDS: methylPREDNISolone 4 MG TABLET PO SCH ×2 (09:36→20:33)
[2020-09-18] MEDS: THEOPHYLLINE ER (24 HR) 200 MG CAPSULE PO SCH (09:36)
[2020-09-18] MEDS: MELOXICAM 7.5 MG TABLET PO SCH (09:36)
[2020-09-18] MEDS: MONTELUKAST 10 MG TABLET PO SCH ×2 (09:36→20:33)
[2020-09-18] MEDS: METOPROLOL TARTRATE 50 MG TABLET PO SCH ×2 (09:36→20:33)
[2020-09-18] MEDS: FERROUS SULFATE 325 MG TABLET PO SCH (09:37)
[2020-09-18] MEDS: AMIODARONE 200 MG TABLET PO SCH (09:37)
[2020-09-18] MEDS: DOCUSATE SODIUM 100 MG CAPSULE PO SCH (09:37)
[2020-09-18] MEDS: PANTOPRAZOLE 40 MG TABLET PO SCH (09:37)
[2020-09-18] MEDS: TAMSULOSIN 0.4 MG CAPSULE PO SCH (09:37)
[2020-09-18] MEDS: PIOGLITAZONE 15 MG TABLET PO SCH (09:37)
[2020-09-18] MEDS: CETIRIZINE 10 MG TABLET PO SCH (09:37)
[2020-09-18] MEDS: metOLazone 5 MG TABLET PO SCH (09:37)
[2020-09-18] MEDS: MOMETASONE 50 MCG NASAL SPRAY 17 GM BOTTLE BOTH NARES SCH ×2 (09:43→20:34)
[2020-09-18] MEDS: CHLORHEXIDINE 0.12% ORAL RINSE 60 ML BOTTLE SWISH/SPIT SCH ×2 (09:43→20:43)
[2020-09-18] MEDS: DILTIAZEM INJ 100 MG in SODIUM CHLORIDE 0.9% 100 ML IV SCH (09:45)
[2020-09-18] MEDS: NON-FORMULARY MEDICATION (Fluticasone-Umeclidin-Vilanter [Trelegy Ellipta] 100-62.5-25 mcg INH SCH (13:25)
[2020-09-18] MEDS: ATORVASTATIN 40 MG TABLET PO SCH (20:33)
[2020-09-18] MEDS: INSULIN GLARGINE 100 UNIT/ML SUBCUT SCH (20:43)
[2020-09-19] MEDS: ALBUTEROL/IPRATROPIUM 3 ML NEB RESP TX SCH ×2 (01:28→07:27)
[2020-09-19 06:50] LABS: Basophils % 0.1 % (0.0-0.8); Eosinophils % 0.2 % (0.00-10.9); Hematocrit 33.6 VOL% (42.0-52.0); Hemoglobin 10.3 GM/DL (14.0-18.0); Immature Granulocytes % 3.8 %; Immature Granulocytes Absolute 0.39 #; Lymphocytes # 1.1 10*3/uL (1.4-4.0); Lymphocytes % 10.9 % (21.2-54.2); Mean Corpuscular HGB Conc 30.7 GM/DL (32-36); Mean Corpuscular Volume 97.4 FL (87-102); Mean Platelet Volume 10.9 FL (9.6-12.0); Monocytes % 4.7 % (1.7-12.7); Neutrophils % 80.3 % (38.7-73.9); Platelet Count 207 T/CUMM (130-400); Red Blood Count 3.45 MC/CUMM (3.8-5.5); White Blood Count 10.2 T/CUMM (4-12)
[2020-09-19 07:56] VITALS: BP 124/78
[2020-09-19 08:55] LABS: Blood Urea Nitrogen 35 MG/DL (7-18); Calcium 7.7 MG/DL (8.5-10.1); Carbon Dioxide 38 MMOL/L (21-32); Estimated Glom Filtration Rate 63 ML/MIN; Glucose 155 MG/DL (74-106); Osmolality,Calculated 287.5 MOS/KG (273-304); Potassium 3.4 MMOL/L (3.5-5.1); Sodium 139 MMOL/L (136-145)
[2020-09-19] MEDS ORDERED: APIXABAN 5 MG TABLET PO SCH (09:00)
[2020-09-19] MEDS ORDERED: AMIODARONE 200 MG TABLET PO SCH (09:00)
[2020-09-19 09:05] LABS: Troponin I 0.443 NG/ML (0.00-0.045)
[2020-09-19] MEDS: methylPREDNISolone 4 MG TABLET PO SCH (09:05)
[2020-09-19] MEDS: MONTELUKAST 10 MG TABLET PO SCH (09:06)
[2020-09-19] MEDS: THEOPHYLLINE ER (24 HR) 200 MG CAPSULE PO SCH (09:06)
[2020-09-19] MEDS: METOPROLOL TARTRATE 50 MG TABLET PO SCH (09:06)
[2020-09-19] MEDS: metOLazone 5 MG TABLET PO SCH (09:06)
[2020-09-19] MEDS: ASPIRIN CHEW 81 MG TABLET PO SCH (09:06)
[2020-09-19] MEDS: PIOGLITAZONE 15 MG TABLET PO SCH (09:06)
[2020-09-19] MEDS: FERROUS SULFATE 325 MG TABLET PO SCH (09:07)
[2020-09-19] MEDS: CETIRIZINE 10 MG TABLET PO SCH (09:07)
[2020-09-19] MEDS: DOCUSATE SODIUM 100 MG CAPSULE PO SCH (09:07)
[2020-09-19] MEDS: MELOXICAM 7.5 MG TABLET PO SCH (09:07)
[2020-09-19] MEDS: ASCORBIC ACID 500 MG TABLET PO SCH (09:07)
[2020-09-19] MEDS: TAMSULOSIN 0.4 MG CAPSULE PO SCH (09:07)
[2020-09-19] MEDS: CHLORHEXIDINE 0.12% ORAL RINSE 60 ML BOTTLE SWISH/SPIT SCH (09:08)
[2020-09-19] MEDS: LACTULOSE 20 GM/30 ML UDCUP PO SCH (09:08)
[2020-09-19] MEDS: PANTOPRAZOLE 40 MG TABLET PO SCH (09:08)
[2020-09-19] MEDS: NON-FORMULARY MEDICATION (Fluticasone-Umeclidin-Vilanter [Trelegy Ellipta] 100-62.5-25 mcg INH SCH (09:11)
[2020-09-19] MEDS: MOMETASONE 50 MCG NASAL SPRAY 17 GM BOTTLE BOTH NARES SCH (09:11)
[2020-09-19] MEDS: INSULIN REGULAR 100 UNIT/ML SUBCUT SCH (09:20)
== END 2020-09-19 12:15 | disposition home health service (06) | DRG 236 ==
LOC: N.4E 09:29 → N.CVR 09-10 10:45 → N.ICU 09-11 17:03 → N.TELES 09-12 11:02